=== PATIENT | male | born 2000 | race Caucasian/White ===

== ENCOUNTER 2019-01-15 17:03 | Emergency (ER) | payer OTHER ==
[~2019-01-15] VITALS: Ht 172.7 cm; Wt 68.0 kg
[2019-01-15] MEDS ORDERED: IV NORMAL SALINE 1,000ML 1,000 ML IV ONE (18:00)
--- NOTE | 2019-01-15 18:13 | RAD ---
CT HEAD WO CONTRAST History: Fall on head, hit back of head, frontal headache Comparison: None. Technique: Noncontrast CT imaging was performed of the head. Exposure: One or more of the following individualized dose reduction techniques were utilized for this examination: 1. Automated exposure control 2. Adjustment of the mA and/or kV according to patient size 3. Use of iterative reconstruction technique. Findings: No acute extra-axial or parenchymal hyperdense hemorrhage is identified at this time. There is no significant intra-axial mass effect, midline shift, or extra-axial fluid collection. The jeffery-white differentiation of the major vascular territories is preserved. The ventricles, sulci, and cisterns are within normal limits in size and configuration. Mastoid air cells are aerated. There is complete opacification mid to anterior left ethmoid air cells as well as opacification of most of the left frontal sinus with air-fluid level present. There is mild right ethmoid air cell mucosal thickening. No acute calvarial abnormality is identified. Impression: 1. No acute intracranial abnormality is identified. 2. There is complete opacification of mid to anterior left ethmoid air cells and near complete opacification of left frontal sinus also with air-fluid level in the left frontal sinus which may be due to acute sinusitis. Electronically signed by: Ronald Li MD (01/15/2019 6:09 PM) [facility]
--- NOTE | 2019-01-15 18:20 | PHYS DOC ---
Past History Past Medical History: Other Past Surgical History: No Surgical History Alcohol Use: None Drug Use: None Adult General Chief Complaint Chief Complaint: HEAD INJURY/TRAUMA HPI HPI 18-year-old male presents with head injury. The patient was in the [employer] training. He was placed on a backboard as a fake patient. As they were carrying him strep the backboard and they dropped him and back of his head hit the concrete. He was still strapped to the backboard. He denies any neck pain or injury. He believes he was dropped from around 3 feet up. He immediately had head pain, ringing in his ears, change in vision and feeling unusual. He has had some ambulatory dysfunction and a general "out of it" feeling. He feels sleepy and like his eyes are heavy. He denies any difficulty with visual acuity. He currently has a headache that he describes a pounding sensation in the front of his head. He denies numbness or tingling in his extremities. His significant oth er who accompanies him states that his voice sounds normal. She didn't witness his being off balance when walking. He was feeling well prior to this accident. Review of Systems Review of Systems Constitutional: Denies fever or chills [] Eyes: Denies change in visual acuity, redness, or eye pain [] HENT: Denies nasal congestion or sore throat [] Respiratory: Denies cough or shortness of breath [] Cardiovascular: No additional information not addressed in HPI [] GI: Denies abdominal pain, nausea, vomiting, bloody stools or diarrhea [] : Denies dysuria or hematuria [] Musculoskeletal: Denies back pain or joint pain [] Integument: Denies rash or skin lesions [] Neurologic: Headache. Denies focal weakness or sensory changes [] Endocrine: Denies polyuria or polydipsia [] All other systems were reviewed and found to be within normal limits, except as documented in this note. Current Medications Current Medications Current Medications Medications (Trade) Dose Ordered Sig/Netta Start Time Stop Time Status Last Admin Dose Admin Sodium Chloride 1,000 ml @ 1,000 mls/hr 1X ONCE 01/15/19 18:00 01/15/19 18:59 01/15/19 18:13 1,000 MLS/HR Allergies Allergies Allergies Coded Allergies Type Severity Reaction Last Updated Verified No Known Drug Allergies 01/15/19 No Physical Exam Physical Exam Constitutional: Well developed, well nourished, no acute distress, non-toxic appearance. [] HENT: Normocephalic, atraumatic, bilateral external ears normal, oropharynx moist, no oral exudates, nose normal. [] Eyes: PERRLA, EOMI, conjunctiva normal, no discharge. [] Neck: Normal range of motion, no tenderness, supple, no stridor. [] Cardiovascular:Heart rate regular rhythm, no murmur [] Lungs & Thorax: Bilateral breath sounds clear to auscultation [] Abdomen: Bowel sounds normal, soft, no tenderness, no masses, no pulsatile masses. [] Skin: Warm, dry, no erythema, no rash. [] Back: No tenderness, no CVA tenderness. [] Extremities: No tenderness, no cyanosis, no clubbing, ROM intact, no edema. [] Neurologic: Alert and oriented X 3, normal motor function, normal sensory function, no focal deficits noted. [] Psychologic: Affect normal, judgement normal, mood normal. [] Current Patient Data Vital Signs Vital Signs Date Time Temp Pulse Resp B/P (MAP) Pulse Ox O2 Delivery O2 Flow Rate FiO2 01/15/19 17:16 97.6 89 22 99 Room Air EKG EKG [] Radiology/Procedures Radiology/Procedures [] Impressions: CT HEAD WO CONTRAST History: Fall on head, hit back of head, frontal headache Comparison: None. Technique: Noncontrast CT imaging was performed of the head. Exposure: One or more of the following individualized dose reduction techniques were utilized for this examination: 1. Automated exposure control 2. Adjustment of the mA and/or kV according to patient size 3. Use of iterative reconstruction technique. Findings: No acute extra-axial or parenchymal hyperdense hemorrhage is identified at this time. There is no significant intra-axial mass effect, midline shift, or extra-axial fluid collection. The jeffery-white differentiation of the major vascular territories is preserved. The ventricles, sulci, and cisterns are within normal limits in size and configuration. Mastoid air cells are aerated. There is complete opacification mid to anterior left ethmoid air cells as well as opacification of most of the left frontal sinus with air-fluid level present. There is mild right ethmoid air cell mucosal thickening. No acute calvarial abnormality is identified. Impression: 1. No acute intracranial abnormality is identified. 2. There is complete opacification of mid to anterior left ethmoid air cells and near complete opacification of left frontal sinus also with air-fluid level in the left frontal sinus which may be due to acute sinusitis. Electronically signed by: Miladis Thurman MD (01/15/2019 6:09 PM) [facility] DICTATED AND SIGNED BY: MILADIS THURMAN MD DATE: 01/15/19 1803 CC: JASKARAN PARNELL DO; PCP,UNKNOWN ~ Course & Med Decision Making Course & Med Decision Making Pertinent Labs and Imaging studies reviewed. (See chart for details) The patient's head CT is negative for acute findings. His labs are unremarkable. For his headache, I gave him 30 mg of Toradol, 10 mg of Reglan, 25 mg of Benadryl, and 1 L normal saline. The patient's headache has decreased to a 4 out of 10. He is feeling much better at this time. He still reports feeling sleepy and his eyes are heavy. I believe he has a concussion. We have discussed man agement and brain rest. He is stable for discharge at this time. He will follow- up with his PCP as needed. [] Dragon Disclaimer Dragon Disclaimer This electronic medical record was generated, in whole or in part, using a voice recognition dictation system. Departure Departure: Impression: Primary Impression: Concussion Disposition: HOME, SELF-CARE Condition: STABLE Referrals: PCP,UNKNOWN (PCP) Patient Instructions: Concussion and Brain Injury, [id number] Problem Qualifiers Primary Impression: Concussion Encounter type: initial encounter Loss of consciousness presence/duration: without LOC Qualified Codes: S06.0X0A - Concussion without loss of consciousness, initial encounter JASKARAN PARNELL DO January 15, 2019 18:20
[2019-01-15 18:30] LABS: BASO % 0 % (0-3); EOS % 0 % (0-3); HEMATOCRIT 43.9 % (39.0-53.0); LYMPH # 1.6 x10^3/uL (1.0-4.8); LYMPH % 14 % (24-48); MEAN CORPUSCULAR HEMOGLOBIN 30 pg (25-35); MEAN CORPUSCULAR HGB CONC 34 g/dL (31-37); MEAN CORPUSCULAR VOLUME 88 fL (79-100); MONO # 0.6 x10^3/uL (0.0-1.1); MONO % 6 % (0-9); NEUT % 79 % (31-73); PLATELET COUNT 284 x10^3/uL (140-400); RED BLOOD COUNT 4.99 x10^6/uL (4.30-5.70); RED CELL DISTRIBUTION WIDTH 12.2 % (11.5-14.5); WHITE BLOOD COUNT 11.3 x10^3/uL (4.0-11.0)
[2019-01-15] MEDS ORDERED: diphenhydrAMINE 50 MG/ML VIAL IVP ONE (18:30)
[2019-01-15] MEDS ORDERED: KETOROLAC 30 MG/ML VIAL. IV ONE (18:30)
[2019-01-15] MEDS ORDERED: METOCLOPRAMIDE HCL 10 MG/2 ML VIAL. IV ONE (18:30)
[2019-01-15 18:46] LABS: ALBUMIN 4.2 g/dL (3.4-5.0); ALBUMIN/GLOBULIN RATIO 1.1 (1.0-1.7); CALCIUM 9.4 mg/dL (8.5-10.1); CREATININE 1.3 mg/dL (0.7-1.3); GFR 70.4; POTASSIUM 3.9 mmol/L (3.5-5.1); TOTAL BILIRUBIN 0.5 mg/dL (0.2-1.0); TOTAL PROTEIN 7.9 g/dL (6.4-8.2)
[2019-01-15 18:57] VITALS: BP 152/70
== END 2019-01-15 19:07 | disposition home or self-care (01) ==
LOC: ER 17:03
DX: S06.0X0A Concussion without loss of consciousness, initial encounter (principal); W17.89XA Other fall from one level to another, initial encounter; Y93.89 Activity, other specified; Y92.89 Other specified places as the place of occurrence of the external cause; Y99.8 Other external cause status
CPT/HCPCS: 36415; 70450; 80053; 85025; 96374; 96375; 99285; J1200; J1885; J2765; J7030